=== PATIENT | female | born 1955 | race Caucasian/White ===

== ENCOUNTER → 2020-04-11 08:25 | Outpatient (BNVA) | payer OTHER, SELFPAY | PROVIDERS: Family Provider Obstetrics & Gynecology; PCP Obstetrics & Gynecology; Visit Provider Registered Nurse | DX: E03.9 Hypothyroidism, unspecified (principal); E78.5 Hyperlipidemia, unspecified | CPT/HCPCS: 80061; 84443 ==

== ENCOUNTER → 2020-04-21 15:44 | Outpatient (BNVA) | payer OTHER, SELFPAY | PROVIDERS: Family Provider Obstetrics & Gynecology; PCP Obstetrics & Gynecology; Visit Provider Registered Nurse | DX: R30.9 Painful micturition, unspecified (principal); R39.9 Unspecified symptoms and signs involving the genitourinary system; H15.009 Unspecified scleritis, unspecified eye | CPT/HCPCS: 81000; 87086 ==

== ENCOUNTER → 2020-06-17 11:30 | Outpatient (BNVA) | payer OTHER, SELFPAY | PROVIDERS: Family Provider Obstetrics & Gynecology; PCP Obstetrics & Gynecology; Visit Provider Registered Nurse | DX: M19.90 Unspecified osteoarthritis, unspecified site (principal) | CPT/HCPCS: 85651; 86038; 86140; 86431 ==

== ENCOUNTER → 2021-04-28 11:03 | Outpatient (BNVA) | payer OTHER, SELFPAY | PROVIDERS: Family Provider Obstetrics & Gynecology; PCP Registered Nurse; Visit Provider Registered Nurse | DX: E03.9 Hypothyroidism, unspecified (principal); H15.009 Unspecified scleritis, unspecified eye; B02.9 Zoster without complications | CPT/HCPCS: 84443 ==

== ENCOUNTER 2021-09-01 08:43 | Outpatient (CLI) | payer OTHER, SELFPAY ==
[2021-09-01 09:22] VITALS: BMI 21.9
--- NOTE | 2021-09-01 09:24 | NMCV_ITS ---
NM susie perf SPECT r/s* [id number] Darshana Chandler Age: 66 Gender: F : 1955 Exam Date: 09/01/2021 09:24 Ordering Phys: Chantel Worthington MD ([email or web address]) Technologist: TAISHA Rosen Exam Location: [facility] Indications: Chest pain STRESS TEST Please see separate stress test report in [facility] for full findings IMAGE PROTOCOL Rest/Stress 1 Exercise Day Radiopharmaceutical Dose (mCi) Administration Site Administered by Rest: Tc-99m 10.9 IV TAISHA Rosen Sestamibi Stress:Tc-99m 32.4 IV TAISHA Rosen Sestamitonya Rest: 01-Sep-2021 60 Discovery 630 Stress: 01-Sep-2021 45 Discovery 630 Radiopharmaceutical was injected at 91% maximum heart rate. Images obtained in supine and prone position. SPECT RESULTS Technical Quality: Excellent Raw Data Analysis: Normal Image Corrections: No attenuation or motion correction applied Summed Stress Score: 0 Summed Rest Score: 5 Summed Difference Score: 0 PERFUSION FINDINGS Fairly uniform myocardial tracer uptake. Attenuation artifacts are noted in the inferior wall region, with the rest imaging FUNCTIONAL RESULTS (calculated via Gated SPECT) Stress Image LV EF (%): 68 Stress EDV (mL):71 TID: 0.84 Stress ESV (mL):23 FUNCTIONAL FINDINGS: Segmental wall motion analysis revealing no gross wall motion normalities. IMPRESSIONS 1. Unremarkable Myocardial perfusion imaging 2. Normal LV ejection fraction of 60%. 3. LV wall motion analysis revealing no gross wall motion abnormalities. 4. Normal LV volume 5. Low probability for coronary ischemia, based on the above findings 6. No similar previous studies are available for comparison Dr Chantel Worthington MD [facility] (Electronically Signed) Final Date: 02 September 2021 07:28 S
--- NOTE | 2021-09-01 09:24 | ECG_ITS ---
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 Interpretive Statements NAME OF STUDY: EXERCISE SESTAMIBI STRESS TEST INDICATION: Chest Pain, PROCEDURE: The baseline electrocardiogram showed normal sinus rhythm with normal ST-Ts poor R wave progression. At the baseline, the patient's blood pressure was 135/96 mm Hg with a heart rate of 74. The patient exercised for 4 minutes and 35 seconds on a standard Suhas protocol. Patient attained a maximum heart rate of 148 beats per minute(94% of the maximum predicted heart rate) with a blood pressure at the peak exercise of 180/75 mm Hg. The EKG at the peak exercise revealed no significant changes because of the heavy artifact, the peak exercise EKG is difficult to interpret. Patient did not have any chest pain or any significant arrhythmis with the exercise Sestamibi was injected 1 minute prior to the peak exercise During the recovery phase, there were no new changes. Blood pressure at the end of the recovery phase was 128/74 mm Hg with a heart rate of 81 per minute. CONCLUSION: 1. No significant EKG changes with the treadmill exercise 2. No exercise-induced chest pain or cardiac arrhythmia 3. Impaired exercise tolerance, attained a maximum of 7.0 METs 4. Sestamibi/Sestamibi perfusion results pending; see separate report. Electronically Signed On 09-04-2021 7:00:02 CDT by Chantel Worthington M.D. [id number]
[2021-09-01 11:55] VITALS: BP 128/74; PULSE 80
== END 2021-09-01 08:44 | disposition home or self-care (01) ==
PROVIDERS: PCP Registered Nurse; Visit Provider Internal Medicine Cardiovascular Disease
DX: R07.9 Chest pain, unspecified (principal)
CPT/HCPCS: 78452; 93017; A9500

== ENCOUNTER 2021-09-08 05:50 | Outpatient (CLI) | payer OTHER, SELFPAY ==
--- NOTE | 2021-09-08 06:15 | USCV_ITS ---
Darshana Chandler Age: 66 Gender: F : 1955 Exam Date: 09/08/2021 06:03 Ordering Phys: Chantel Worthington MD ([email or web address]) Technologist: Jennifer Grande [place] [facility] [place]: Shortness of breath, chest pain BP: 117 / 65 HR: 60 Rhythm: Sinus Technical Quality: Adequate MEASUREMENTS (Male / Female) Normal Values 2D ECHO LV Diastolic Diameter PLAX 3.0 cm 4.2 - 5.9 / 3.9 - 5.3 cm LV Systolic Diameter PLAX 2.2 cm IVS Diastolic Thickness 1.4 cm 0.6 - 1.0 / 0.6 - 0.9 cm IVS Systolic Thickness 1.3 cm LVPW Diastolic Thickness 1.3 cm 0.6 - 1.0 / 0.6 - 0.9 cm LVPW Systolic Thickness 1.5 cm LVOT Diameter 2.0 cm LV Ejection Fraction 2D Teich 54.9 % LV Ejection Fraction MOD 2C 44.5 % LV Ejection Fraction 2C AL 43.6 % LA Diameter 1.5 cm LA Width 2.4 cm LA Height 3.0 cm RA Width 3.5 cm RA Height 5.9 cm Aorta at Sinotubular Diameter 2.2 cm IVC Diameter 1.1 cm M-MODE Aortic Annulus Diameter 3.4 cm LA Ao Ratio MM 0.4 MV E Point Septal Separation 0.5 cm DOPPLER AV Peak Velocity 80.0 cm/s LVOT Peak Velocity 69.0 cm/s AV Area Cont Eq vti 2.5 cm squared AV Area Cont Eq pk 2.8 cm squared MV Area PHT 4.5 cm squared Mitral E to A Ratio 0.9 MV E' Velocity 32.5 cm/s Mitral E to MV E' Ratio 6.0 Mitral E to LV E' Lateral Ratio 4.8 Mitral E to LV E' Septal Ratio 8.0 TV Peak E Velocity 32.0 cm/s Right Atrial Pressure 8.0 mmHg PV Peak Velocity 62.0 cm/s RV Acceleration Time 0.2 s RV Ejection Time 0.3 s RV AcT/ET 0.5 FINDINGS Left Ventricle Diffuse hypokinesia of the left ventricle with an ejection fraction of 44%. Right Ventricle The right ventricle is normal in size and function. Right Atrium The right atrium is normal in size. Left Atrium The left atrium is normal in size. Mitral Valve Thickened mitral valve. Trace mitral valve regurgitation. Aortic Valve No gross abnormalities noted Tricuspid Valve No gross abnormalities noted Pulmonic Valve No gross abnormalities noted Pericardium Normal pericardium without effusion. Aorta Normal ascending aorta dimension. IVC Normal IVC dimension with >50% respiratory change of the inferior vena cava. CONCLUSIONS Diffuse hypokinesia of the left ventricle with an ejection fraction of 44%. Thickened mitral valve. Trace mitral valve regurgitation. There are no intracardiac masses. There is no pericardial effusion. Possibly normal chamber sizes The PA pressure could not be calculated. No similar previous studies are available for comparison Dr Chantel Worthington MD [facility] (Electronically Signed) Final Date: 08 September 2021 07:10 S
== END 2021-09-08 05:51 | disposition home or self-care (01) ==
LOC: RAD 05:51
PROVIDERS: PCP Registered Nurse; Visit Provider Internal Medicine Cardiovascular Disease
DX: I34.0 Nonrheumatic mitral (valve) insufficiency (principal)
CPT/HCPCS: 93306

== ENCOUNTER → 2021-09-23 12:13 | Outpatient (BNVA) | payer OTHER, SELFPAY | PROVIDERS: PCP Registered Nurse; Visit Provider Internal Medicine Cardiovascular Disease | DX: I10 Essential (primary) hypertension (principal); E78.5 Hyperlipidemia, unspecified; I42.9 Cardiomyopathy, unspecified | CPT/HCPCS: 36415; 80048; 80061; 80076; 85025; 85610; 86850; 86900 ==

== ENCOUNTER 2021-10-13 09:10 | Outpatient (CLI) | payer OTHER, SELFPAY ==
[2021-10-13 10:48] LABS: Alanine Aminotransferase 11 U/L (0-33); Albumin Level 4.5 g/dL (3.5-5.2); Alkaline Phosphatase 81 IU/L (35-105); Aspartate Amino Transferase 18 U/L (0-32); Cholesterol 247 mg/dL (0-200); Globulin 2.3 g/dL (1.3-4.6); HDL Cholesterol 65 mg/dL (60-100); LDL Cholesterol Calculated 160 mg/dL (50-129); LDL HDL Ratio 2.46 RATIO (0.00-3.22); Total Bilirubin 0.3 mg/dL (0.15-1.2); Total Protein 6.8 g/dL (6.6-8.7); Triglycerides 112 mg/dL (0-150)
== END 2021-10-13 09:11 | disposition home or self-care (01) ==
PROVIDERS: PCP Registered Nurse; Visit Provider Internal Medicine Cardiovascular Disease
DX: E78.5 Hyperlipidemia, unspecified (principal)
CPT/HCPCS: 80061; 80076

== ENCOUNTER 2021-10-15 07:01 | Outpatient (CLI) | payer OTHER, SELFPAY ==
[2021-10-15] VITALS (12 sets, daily range): BP systolic 123–150; BP diastolic 70–90; PULSE 58–64; RESP 13–21; TEMP 36.8; O2SAT 94–98; BMI 22.2
--- NOTE | 2021-10-15 07:00 | XACV_ITS ---
Ht: 170 cm Wt: 64 kg BSA: 1.75 m2 Gender: Female : 1955 Any Known Allergies: Other Exam Priority: Routine Indication(s): - Cardiomyopathy Procedure(s): Procedure Description: Diagnostic procedure Procedure Description: Left Heart Catheterization Procedure Description: Coronary Angiography Ander WALLER; Diagnostic Cath Status: Elective Diagnostic Findings * The left main is a medium caliber vessel with no significant stenotic lesions. * The left anterior descending artery is a medium caliber vessel with mild diffuse ectasia in the proximal to mid segment. Minimal intimal irregularities were noted in this region. No significant obstructive lesions. * The left circumflex artery is a small to medium caliber nondominant vessel with no significant stenotic lesions. * The right coronary artery is a medium to large caliber dominant vessel with no significant stenotic lesions. Conclusions 1. This 66-year-old white female, present with complaints of chest pain and shortness of breath. She had a Myocardial perfusion imaging which was unremarkable. Echocardiogram revealed an LV ejection fraction of 44%. In view of the patient's ongoing symptoms and the LV dysfunction by echocardiogram, in order to further evaluate the coronary status, a cardiac catheterization was recommended. Patient underwent left heart catheterization with left and right coronary angiogram today. The findings are as follows. 2. Right dominant coronary circulation. No significant stenotic lesions in the left main, left anterior descending artery and the circumflex arteries. LVEDP 22 mmHg.. Diagnostic RX Recommendation: medical therapy and/or counseling Pressures Phase:Rest AO : 100 / 98 ( 80 ) @ 9:52:00 AM 115 / 62 ( 87 ) @ 9:55:00 AM 115 / 62 ( 87 ) @ 9:55:00 AM LV : 114 @ 9:55:00 AM 113 @ 9:55:00 AM Valves Phase:DefaultPhase AV : 0.0 @ 9:08:53 AM AV Mean Gradient: 0.0 @ 9:08:53 AM Clinical Evaluation EBL: 5mL-10mL Procedural Details Pre-Procedure Time Out. Identified patient by full name and date of as verbalized by the patient/guarantor. Does the consent match the physician's order: Yes. Accurate & Complete Informed Consent: Yes. Inpatient/Outpatient History & Physical on Chart: Yes. If H&P is completed, is and addenduem needed: No; If yes, is the addendum complete: N/A. Visualize and Verify Site with Patient/Guarantor: N/A. Relevant Radiology Images available: N/A. Pre-op teaching completed and patient verbalized understanding. The risks, benefits, and alternatives of sedation and/or procedure were discussed by physician. The patient agrees to continue. Procedure started. [facility] Clinical Fraility Score: 3: Managing Well. 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 Chest Pain Symptom Assessment: Atypical Angina. Cardiovascular Instability: No, stable. Correct patient, site and procedure confirmed by cath team. Current diagnosis: Cardiomyopathy. PERRLA. Strong, equal hand quill cleaner bilaterally. Lungs clear x 5 lobes. IV Site on Arrival: 20 gauge in the left forearm. IV Fluids: 0.9% NaCl at KVO. 0 mL infused prior to engineering lab technician. Pre Procedural Pulses: bilateral dorsalis pedis was 3+. Pre Procedural Pulses: bilateral posterior tibial was 3+. Pre Procedural Pulses: bilateral radial was 3+. Oxygen started at 3liters/min via nasal canula. right groin was prepped with chloroprep then draped in the usual sterile fashion. right radial was prepped with chloroprep then draped in the usual sterile fashion. Physician notified. Baseline sample Acquired. HR: 66 BPM. Baseline sample Acquired. HR: 65 BPM. Admit Source: Out Patient. Current Diagnosis : Chest Pain. Family updated by MD prior to the start of the procedure. Equipment: 5F - Femoral. Equipment: 5F - Radial. Equipment: 6F - Femoral. Equipment: 6F - Radial. Physician arrived. Physician scrubbed in. Immediate Pre-Procedure Time Out. Correct Patient: Yes; Correct Procedure: Yes; Correct Site: Yes; Correct Patient Position: Yes; Correct Supplies: Yes; Dried Flammable Prep: Yes; Blood Products Available: N/A;. Lidocaine 1% infiltrated to the right radial. Heparinized Saline (2 units/mL), 1000 mL bag. Cardiac Cath Pack. [employer] Manifold Kit Model BT 2000. Arterial access obtained. A 5 lao Arsenio catheter in over wire. Multiple views taken of left coronary artery. Catheter dropped into lv over the wire. EDP Sample taken: LV 114/11,22; HR: 67 BPM; SpO2: 94%. Pullback taken: LV 113/10,21; AO 115/62(87); Mean: 0mmHg, Peak to Peak: 0mmHg, SEP: 16sec/min; HR: 66 BPM; SpO2: 94%. Catheter out over the wire. A CRD 5F JR4 Diagnostic Catheter was advanced over the wire and used for Right coronary angiography. Multiple views taken of right coronary artery. Catheter removed over the wire. Physician scrubbed out. Physician review of films. A TR Band was successful obtaining hemostatsis at the Right Radial artery insertion site. TR band placed. Hemostasis obtained. Post Procedure: Pulses reassessed and unchanged. PERRLA. Strong, equal hand quill cleaner bilaterally. No VTE prophylaxis required. Medication waste: Lido- 1 ml Nitro- 49.8 mg Heparin- 1000 units. Versed- 1 mg Fentanyl- 50 mcg. Total IV fluids: 250 mL. Fluoro: 4:08. Contrast type used: Omnipaque 300 mg/mL, 150 mL bottle. [id number]. Post-op diagnosis: Cardiomyopathy, Normal Coronaries. Complications: None. Estimated blood loss: 5mL-10mL. Responsiveness - Normal response to verbal stimuli; alert and oriented, PERRLA. Airway - Unaffected, no intervention required; spontaneous ventilation. Circulation: W/N/L, pulses unchanged. Nausea/Vomiting: No. Procedure completed. Patient transferred by bed to CPRU. Vital chart was stopped. Access Site Site: Right Radial artery Sheath Size: 6 Fr Hemostasis Method: TR Band Hemostasis Success: Successful Procedure Medications Start: 8:34 AM Stop: 8:34 AM Medication: Solu-Medrol (methylprednisolone) Amount: 60 mg Route: I.V. Start: 8:37 AM Stop: 8:37 AM Medication: Fentanyl Amount: 50 mcg Route: I.V. Start: 8:38 AM Stop: 8:38 AM Medication: Versed Amount: 1 mg Route: I.V. Start: 8:46 AM Stop: 8:46 AM Medication: 0.9% Saline Amount: 250 ml Route: I.V. bolus Start: 8:47 AM Stop: 8:47 AM Medication: Nitrogylcerin Amount: 200 mcg Route: I.A. Start: 8:47 AM Stop: 8:47 AM Medication: Verapamil Amount: 5 mg Route: I.A. Start: 8:56 AM Stop: 8:56 AM Medication: Heparin Amount: 5000 units Route: I.V. I, the attending physician, have reviewed and verified all procedure medications. Yes, all medications given per verbal order History/Risk Factors Hypertension: Yes Dyslipidemia: No Peripheral Arterial Disease (PAD): No Myocardial Infarction (OH): No Obesity: No Renal Disease: No Tobacco Use: Never Prior Interventions PCI: No CABG: No Valve Surgery: No Report Signatures Finalized by Dr Chantel Worthington MD [facility] on 10/15/2021 09:14 PM
[2021-10-15 07:27] LABS: Basophils % 0.1 %; Hematocrit 40.6 % (37.0-47.0); Hemoglobin 13.1 g/dL (11.5-15.3); Lymphocytes # 1.2 10^3/uL (0.8-4.8); Lymphocytes % 16.5 %; Mean Corpuscular HGB Conc 32.3 g/dL (30.0-36.0); Mean Corpuscular Hemoglobin 30.8 pg (28.0-34.0); Mean Corpuscular Volume 95.5 fl (81-99); Mean Platelet Volume 12.2 fL (7.4-10.4); Monocytes # 0.3 10^3/uL (0.2-0.9); Monocytes % 3.5 %; Neutrophils # 5.85 10^3/uL (1.8-7.7); Neutrophils % 79.6 %; Nucleated Red Blood Cells % 0 %; Platelet Count 199 10^3/cmm (130-400); Red Blood Count 4.25 10^6/uL (4.1-5.3); Red Cell Distribution Width 13.9 % (12.1-15.1); White Blood Count 7.4 10^3/uL (4.0-10.0)
[2021-10-15 07:37] LABS: INR 1.03 (0.8-1.2)
[2021-10-15 07:42] LABS: Anion Gap 16.9 (5-19); Blood Urea Nitrogen 18 mg/dL (8-23); Calcium 9.6 mg/dL (8.5-10.5); Carbon Dioxide 23 mmol/L (22-29); Chloride 105 mmol/L (98-107); Glomerular Filtration Rate 100.6 mL/min (90-130); Glucose 126 mg/dL (65-115); Osmolality Calculated 295 mOsm/kg (285-295); Potassium 3.9 mmol/L (3.5-5.1); Sodium 141 mmol/L (136-145)
[2021-10-15] MEDS: diphenhydrAMINE 50 mg Capsule PO (08:07)
--- NOTE | 2021-10-15 09:25 | PC.NURSE ---
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 tr band present on right wrist with distal pulses present. no bruising or hematoma noted. pt complains of no pain. nurse educated pt and spouse at bedside of restrictions of right wrist. both stated understanding. pt placed on vitals machine and will be monitored per protocol. call light placed on bedside table within reach with instructions to call if nurse was needed for anything.
== END 2021-10-15 12:25 | disposition home or self-care (01) ==
PROVIDERS: PCP Registered Nurse; Visit Provider Internal Medicine Cardiovascular Disease
DX: R07.9 Chest pain, unspecified (principal); R06.02 Shortness of breath; I10 Essential (primary) hypertension; Z79.82 Long term (current) use of aspirin; E03.9 Hypothyroidism, unspecified; E78.5 Hyperlipidemia, unspecified; Z88.8 Allergy status to other drugs, medicaments and biological substances; I42.9 Cardiomyopathy, unspecified
CPT/HCPCS: 36415; 80048; 85025; 85610; 93452; 93458; 96360; 96361; 99152; 99153; C1769; C1887; C1894; J1644; J2250; J2930; J3010; J3490; J7030; Q0163; Q9967

== ENCOUNTER → 2021-10-22 10:13 | Outpatient (BNVA) | payer OTHER, SELFPAY | PROVIDERS: PCP Registered Nurse; Visit Provider Nurse Practitioner Family | DX: I10 Essential (primary) hypertension (principal); I42.9 Cardiomyopathy, unspecified | CPT/HCPCS: 36415; 80048 ==

== ENCOUNTER 2022-05-01 09:34 | Outpatient (CLI) | payer OTHER, MEDICARE, SELFPAY ==
--- NOTE | 2022-05-01 09:43 | XRR_ITS ---
PROCEDURE INFORMATION: Exam: XR Lumbosacral Spine Exam date and time: 05/01/2022 9:44 AM Age: 67 years old Clinical indication: Pain; Sciatica; Left; Additional info: M54.31 - sciatica, right side TECHNIQUE: Imaging protocol: Radiologic exam of the lumbosacral spine. Views: 2 or 3 views. COMPARISON: CR XR lumbar spine 2-3V* [id number] 01/21/2016 3:07 PM FINDINGS: Bones/joints: Lumbar curvature and alignment is unremarkable. There are moderate degenerative changes L5-S1 with disc space narrowing, endplate sclerosis, osteophytic lipping and facet arthrosis. Remaining disc heights maintained. Osseous structures otherwise unremarkable. There is no fracture or spondylolisthesis. Pedicles are intact. Soft tissues: Paraspinal soft tissues are unremarkable. XR/XR lumbar spine 2-3V* [id number] IMPRESSION: Moderate degenerative changes L5-S1. No acute bony abnormalities
== END 2022-05-01 09:35 | disposition home or self-care (01) ==
PROVIDERS: PCP Registered Nurse; Visit Provider Registered Nurse
DX: M54.31 Sciatica, right side (principal)
CPT/HCPCS: 72100

== ENCOUNTER → 2022-05-19 10:22 | Outpatient (BNVA) | payer MEDICARE, SELFPAY | PROVIDERS: PCP Registered Nurse; Visit Provider Anesthesiology Pain Medicine | DX: M47.816 Spondylosis without myelopathy or radiculopathy, lumbar region (principal); M51.16 Intervertebral disc disorders with radiculopathy, lumbar region | CPT/HCPCS: 99204 ==

== ENCOUNTER → 2022-06-10 09:15 | Outpatient (BNVA) | payer MEDICARE, SELFPAY | PROVIDERS: PCP Registered Nurse; Visit Provider Registered Nurse | DX: E03.9 Hypothyroidism, unspecified (principal) | CPT/HCPCS: 80053; 84443 ==

== ENCOUNTER 2022-06-11 06:55 | Outpatient (CLI) | payer MEDICARE, SELFPAY ==
--- NOTE | 2022-06-11 07:15 | MR_ITS ---
WS: [id number] MRI LUMBAR SPINE NONCONTRAST TECHNIQUE: Sagittal T1, T2 and STIR imaging. Axial T1 and T2 imaging. CLINICAL INFORMATION: M47.816 - Spondylosis without myelopathy or radiculopathy... COMPARISON: None. FINDINGS: Mild lumbar curve. No acute compression. No high-grade central canal stenosis. Incidental Tarlov cyst in the sacrum. L1-L2: Mild annular bulging. Slight narrowing of the RIGHT subarticular recess. Mild LEFT foraminal n arrowing. Mild facet arthropathy. L2-L3: No significant disc bulging. Spinal canal and foramen are patent. L3-L4: Mild annular bulging. Mild facet arthropathy. Spinal canal and foramen are patent. L4-L5: Mild annular bulging with a small annular fissure. Slight impingement traversing L5 nerve root s bilaterally. Mild facet arthropathy. Foramen are patent. L5-S1: Mild disc space narrowing. Mild disc osteophytic ridging. Spinal canal and foramen are patent. Mild facet arthropathy. Visualized pelvic bony structures: Normal. Paravertebral soft tissues: Normal. Retroverted and retroflexed uterus. MR/MR lumbar spine wo con* [id number] IMPRESSION: 1. Mild lumbar curve. No acute compression. No high-grade central canal stenos is. 2. Mild annular bulging L4-L5 with slight impingement traversing L5 nerve root s bilaterally. Small annular fissure. 3. Tiny RIGHT subarticular protrusion L1-L2 with slight narrowing of the RIGHT subarticular recess. 4. Moderate facet arthropathy L4-L5. 5. Incidental Tarlov cyst in the sacrum measuring 2.3 x 1.5 cm. 6. Retroverted and retroflexed uterus.
== END 2022-06-11 06:56 | disposition home or self-care (01) ==
LOC: RAD 06:57
PROVIDERS: PCP Registered Nurse; Visit Provider Anesthesiology Pain Medicine
DX: M47.816 Spondylosis without myelopathy or radiculopathy, lumbar region (principal); N85.4 Malposition of uterus; G96.191 Perineural cyst; M51.26 Other intervertebral disc displacement, lumbar region
CPT/HCPCS: 72148; 99204

== ENCOUNTER → 2022-06-14 13:45 | Outpatient (BNVA) | payer MEDICARE, SELFPAY | PROVIDERS: PCP Registered Nurse; Visit Provider Anesthesiology Pain Medicine | DX: M54.16 Radiculopathy, lumbar region (principal) | CPT/HCPCS: 64483; 64484; J1100; J1200; J3490 ==

== ENCOUNTER → 2022-06-28 13:33 | Outpatient (BNVA) | payer MEDICARE, SELFPAY | PROVIDERS: PCP Registered Nurse; Visit Provider Anesthesiology Pain Medicine | DX: M54.16 Radiculopathy, lumbar region (principal) | CPT/HCPCS: 64483; 64484; J1100; J3490 ==

== ENCOUNTER → 2022-07-14 11:02 | Outpatient (BNVA) | payer MEDICARE, SELFPAY | PROVIDERS: PCP Registered Nurse; Visit Provider Anesthesiology Pain Medicine | DX: M47.816 Spondylosis without myelopathy or radiculopathy, lumbar region (principal); M51.16 Intervertebral disc disorders with radiculopathy, lumbar region | CPT/HCPCS: 99214 ==

== ENCOUNTER → 2022-10-27 09:58 | Outpatient (BNVA) | payer MEDICARE, SELFPAY | PROVIDERS: PCP Registered Nurse; Visit Provider Registered Nurse | DX: N39.0 Urinary tract infection, site not specified (principal) | CPT/HCPCS: 81000 ==

== ENCOUNTER → 2023-04-25 11:34 | Outpatient (BNVA) | payer MEDICARE, SELFPAY | PROVIDERS: PCP Registered Nurse; Visit Provider Registered Nurse | DX: N39.0 Urinary tract infection, site not specified (principal); R39.9 Unspecified symptoms and signs involving the genitourinary system | CPT/HCPCS: 81000; 87086 ==

== ENCOUNTER → 2023-06-01 08:52 | Outpatient (BNVA) | payer MEDICARE, SELFPAY | PROVIDERS: PCP Registered Nurse; Visit Provider Registered Nurse | DX: E78.5 Hyperlipidemia, unspecified (principal); E03.9 Hypothyroidism, unspecified | CPT/HCPCS: 84443 ==

== ENCOUNTER → 2023-08-22 09:00 | Day surgery (SDC) | payer MEDICARE, SELFPAY | LOC: OPS 10-20 12:25 | PROVIDERS: PCP Registered Nurse; Visit Provider Obstetrics & Gynecology | DX: Z01.818 Encounter for other preprocedural examination (principal) | CPT/HCPCS: 93005 ==

== ENCOUNTER 2023-08-30 10:26 | Observation (INO) | payer MEDICARE, SELFPAY ==
--- NOTE | 2023-08-22 09:40 | ECG_ITS ---
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 Measurements Intervals Burt Rate: 64 P: 72 MD: 213 QRS: 44 QRSD: 87 T: 81 QT: 384 QTc: 397 Interpretive Statements SINUS RHYTHM WITH FIRST DEGREE AV BLOCK LOW QRS VOLTAGE IN PRECORDIAL LEADS [QRS DEFLECTION < 1.0 mV IN CHEST LEADS] No previous ECG available for comparison Electronically Signed On 08-22-2023 14:34:45 CDT by Duglas Jordan M.D. [id number]
--- NOTE | 2023-08-22 09:51 | ANES.PREANE2 ---
Pre-Anesthetic Assessment Height/Weight: Height 1.7 m Operation Date: 08/30/23 12:40 Proposed Procedures p Total Vaginal Hysterectomy 21780, 72650, 43204, 90804, N81.2, N81.10, N81.6(Not Applicable) - Peter Jackson MD s Anterior Repair Anterior Colporrhaphy(Not Applicable) - MD roxie Romero Posterior Repair Posterior Colporrhaphy(Not Applicable) - Peter Jackson MD s Sling(Not Applicable) - Peter Jackson MD s Sacrospinous Ligament Suspension Sacrospinous Fixation(Not Applicable) - Peter Jackson MD Familial anesthetic complications: none Social No alcohol and No tobacco Exam alert, oriented x 3, clear to auscultation bilaterally and regular rate & rhythm Airway Mallampati: Class II Dentition: other (bridges) Metabolic Thyroid Disease Anesthetic Plan ASA status: 2 Anesthesia: General Risk of > 500 ml blood loss (7ml/kg in children): No Medications/Allergies Home Medications Medication Instructions Recorded Confirmed Last Taken Type nitroglycerin 0.4 mg sublingual 0.4 mg sublingual Q5M PRN chest 06/24/21 08/22/23 10/13/21 Rx tablet pain 30 days #30 tabs aspirin 325 mg tablet 325 mg PO DAILY 10/14/21 08/22/23 08/15/23 History prednisolone acetate 1 % eye 1 drp ophthalmic (eye) DAILY 30 04/18/23 08/22/23 08/22/23 Rx drops,suspension days #5 mL levothyroxine 50 mcg capsule 50 mcg PO DAILY #90 caps 06/07/23 08/22/23 08/22/23 Rx acetaminophen 300 mg-codeine 30 mg 1 tab PO Q6H 5 days #20 tabs 07/11/23 08/22/23 08/19/23 Rx tablet Allergies Allergy/AdvReac Type Severity Reaction Status Date / Time iodine Allergy Severe ALGY-Anaphy Verified 08/22/23 07:49 laxis Chjufny-HAT-IzM Reductase AdvReac Severe Myalgia Verified 08/22/23 07:49 Inhibitor PFSH Anesthesia Medical History Hypothyroid Scleritis Family History Mother Heart disease CAD (coronary artery disease) Dementia Diabetes Father Heart disease CAD (coronary artery disease) Family/Other CAD (coronary artery disease) Cancer Denies family history of Clotting disorder Chronic kidney disease (CKD) Suicide Anesthesia complication Bleeding disorder Lung disease Stroke Social History Smoking and tobacco/nicotine status: never used tobacco/nicotine Alcohol intake: never Substance/Drug Use: never Adopted: No Caregiver/support person: No Lives independently: No Household members: spouse Housing: House Marital status: service: No Current occupational status: retired Sexually active: Yes Do you think of yourself as: Straight/Heterosexual Current gender identity: Female Agree to transfusion: Yes Data Anesthesia Cardiac Studies: Echocardiogram 09/08/21 Sestamibi Stress Test (Cardiology) 09/01/21
[2023-08-30] VITALS (18 sets, daily range): BP systolic 94–135; BP diastolic 62–83; PULSE 54–79; RESP 15–20; TEMP 36.3–36.9; O2SAT 91–99; BMI 22.5
[2023-08-30] MEDS: sodium chloride 0.9% 1,000 ML 30 ML IV (06:39)
[2023-08-30] MEDS: scopolamine 1.5 Patch 1 PATCH TRANSDERMA (06:39)
[2023-08-30] MEDS: enoxaparin 30 mg/0.3 mL Syringe SUBCUT (06:39)
[2023-08-30] MEDS: ceFOXitin 2,000 MG in sodium chloride 0.9% (plus) 50 ML 100 MG IV (06:39)
--- NOTE | 2023-08-30 06:43 | W.PM.OPSUD ---
Surgery/Procedure H&P Update DATE OF PROCEDURE: August 30, 2023 DATE H&P PERFORMED: 08/22/23 H&P UPDATE INFORMATION: I have reviewed H&P completed within last 30 days, I have examined patient prior to procedure and No changes to prior documentation PREOP DIAGNOSIS: Uterine prolapse, cystocele, rectocele PLANNED PROCEDURE: Operation Date: 08/30/23 07:00 Proposed Procedures p Total Vaginal Hysterectomy 01531, 00378, 54844, 32631, N81.2, N81.10, N81.6(Not Applicable) - Peter Jackson MD s Anterior Repair Anterior Colporrhaphy(Not Applicable) - Peter Jackson MD s Posterior Repair Posterior Colporrhaphy(Not Applicable) - Peter Jackson MD s Sling(Not Applicable) - Peter Jackson MD s Sacrospinous Ligament Suspension Sacrospinous Fixation(Not Applicable) - Peter Jackson MD
[2023-08-30 07:04] LABS: Basophils # 0.1 10^3/uL (0.0-0.1); Basophils % 1.4 %; Eosinophils # 0.1 10^3/uL (0.0-0.8); Eosinophils % 3.3 %; Hematocrit 41.3 % (36-47); Lymphocytes # 1.7 10^3/uL (0.8-4.8); Lymphocytes % 40.6 %; Mean Corpuscular HGB Conc 32.7 g/dL (30-55); Mean Corpuscular Hemoglobin 30.7 pg (27-33); Mean Corpuscular Volume 93.9 fl (85-98); Mean Platelet Volume 12.1 fL (7.4-10.4); Monocytes # 0.4 10^3/uL (0.2-0.9); Neutrophils # 1.93 10^3/uL (1.8-7.7); Neutrophils % 45.5 %; Nucleated Red Blood Cells % 0 %; Platelet Count 178 10^3/cmm (157-399); Red Cell Distribution Width 13.9 % (12.1-15.1); White Blood Count 4.24 10^3/uL (3.29-11.43)
[2023-08-30 07:16] LABS: Alanine Aminotransferase 10 U/L (0-33); Albumin Level 4.3 g/dL (3.5-5.2); Alkaline Phosphatase 98 U/L (35-105); Anion Gap 14.1 (5-19); Aspartate Amino Transferase 13 U/L (0-32); Blood Urea Nitrogen 17 mg/dL (8-23); Carbon Dioxide 26 mmol/L (22-29); Chloride 105 mmol/L (98-107); Creatinine Clr Calc Pharmacy 68.8917; Globulin 2.8 g/dL (1.3-4.6); Glucose 86 mg/dL (65-115); Osmolality Calculated 293 mOsm/kg (285-295); Potassium 4.1 mmol/L (3.5-5.1); Sodium 141 mmol/L (136-145); Total Bilirubin 0.3 mg/dL (0.15-1.2); Total Protein 7.1 g/dL (6.6-8.7)
[2023-08-30 07:19] LABS: Blood Urine 2+ (Negative); Glucose Urine UA Norm (Normal); Ketones Urine 1+ (Negative); Nitrate Urine Negative (Negative); Protein Urine Neg (Negative); Specific Gravity, Urine 1.015 (1.005-1.030); Urine Appearance Slightly Cloudy (CLEAR); Urine Color Yellow (Yellow); pH Urine 5 (5-7)
[2023-08-30 07:20] LABS: Add Urine Culture? Yes; Add Urine Microscopic? YES; Bacteria Urine TRACE /hpf; Bilirubin Urine Neg (Negative); Leukocyte Esterase Urine 2+ (Negative); Mucus Urine 1+ /hpf; RBC Urine 0-4 /hpf (0-2); Squamous Epithelial Cell Urine 0-4 /hpf (0-5); Transitional Epi Cells Urine 0-4 /hpf; Urobilinogen Urine Neg (Negative); WBC Urine 15-25 /hpf (0-5)
[2023-08-30] MEDS: lidocaine-epi 2% PF 1:200,000 20 mL SDV INJECTION (07:51)
--- NOTE | 2023-08-30 07:52 | P.ANESUD_ITS ---
Pre-Anesthetic Update Pre-Anesthetic Assessment: Date of Surgery/Procedure: 08/30/23 Preop Yasmin gnosis: Uterine prolapse, cystocele, rectocele Proposed Procedure: Operation Date: 08/30/23 07:00 Proposed Procedures p Total Vaginal Hysterectomy 31455, 91000, 64933, 49422, N81.2, N81.10, N81.6(Not Applicable) - Peter Jackson MD s Anterior Repair Anterior Colporrhaphy(Not Applicable) - Peter Jackson MD s Posterior Repair Posterior Colporrhaphy(Not Applicable) - Peter Jackson MD s Sling(Not Applicable) - Peter Jackson MD s Sacrospinous Ligament Suspension Sacrospinous Fixation(Not Applicable) - Peter Jackson MD Any changes to Pre-Anesthetic Assessment?: No Last Intake: Intake Last Liquid Date 08/29/23 Last Liquid Time 23:30 Last Solid Date 08/29/23 Last Solid Time 19:00 Labs Last 48hrs: Short CBC 08/30/23 Range/Units 06:33 WBC 4.24 (3.29-11.43) 10^ 3/uL Hgb 13.50 (11.27-16.99) g/ dL Hct 41.3 (36-47) % MCV 93.9 (85-98) fl Plt Count 178 (157-399) 10^3/c mm Neut % (Auto) 45.5 % Neut # (Auto) 1.93 (1.8-7.7) 10^3/u L BMP 08/30/23 06:33 Sodium 141 Potassium 4.1 Chloride 105 Carbon Dioxide 26 BUN 17 Creatinine 0.6 Glucose 86 Calcium 9.0 Liver Function 08/30/23 Range/Units 06:33 Total Bilirubin 0.3 (0.15-1.2) mg/dL AST 13 (0-32) U/L ALT 10 (0-33) U/L Alkaline Phosphata se 98 (35-105) U/L Albumin 4.3 (3.5-5.2) g/dL Urine 08/30/23 Range/Units 06:10 Urine Color Yellow (Yellow) Urine Appearance Slightly cloudy (CLEAR) Urine pH 5 (5-7) Ur Specific Gravit y 1.015 (1.005-1.030) Urine Protein Neg (Negative) Urine Glucose (UA) Norm (Normal) Urine Ketones 1+ H (Negative) Urine Nitrate Negative (Negative) Urine Bilirubin Neg (Negative) Ur Leukocyte Yanna ase 2+ H (Negative) Urine RBC 0-4 H (0-2) /hpf Urine WBC 15-25 H (0-5) /hpf Vitals: Temperature 97.7 F 08/30/23 06:14 Temperature Source Temporal Artery S can 08/30/23 06:14 Pulse Rate 67 08/30/23 06:14 Pulse Rhythm Regular 08/30/23 06:14 Respiratory Rate 18 08/30/23 06:14 Blood Pressure 135/83 08/30/23 06:14 Blood Pressure Dawna n 100 08/30/23 06:14 Pulse Oximetry 96 08/30/23 06:14 Oxygen Delivery Me thod Room Air 08/30/23 06:14 Exam: Pre-Anes Outpt Exam: alert, oriented x 3, clear to auscultation bilaterally and regular rate & rhythm Cardiac Studies: Echocardiogram 09/08/21 Sestamibi Stress Test (Cardiology) 09/01
[2023-08-30] MEDS: lidocaine-epi 2% PF 1:200,000 20 mL SDV XX (08:59)
--- NOTE | 2023-08-30 09:53 | P.OP_ITS ---
Operative Report Date of procedure: August 30, 2023 Pre-op diagnosis: Uterine prolapse Cystocele Rectocele Post-op diagnosis: same Procedure done: Total vaginal hysterectomy with bilateral salpingo-oophorectomy Anterior colporrhaphy augmented with allograft Mid urethral sling Posterior colporrhaphy Sacrospinous fixation Cystoscopy Specimens removed/disposition: Uterus Left and right fallopian tubes and ovaries Surgeon: Peter Jackson MD Estimated blood loss (mL): 20 IV fluids (mL): 1,200 Urine output (mL): 100 Complications: none Procedure: After informed consent and risks, benefits, indications and alternatives reviewed with the patient was taken to the operating room. The patient was placed in dorsal lithotomy position prepped, and draped in the usual sterile fashion. The pre-procedure timeout verifying the correct patient, procedure, site and side, could not requirements was performed and acknowledge by the OR team. A Phillips catheter was placed. A Bookwalter vaginal retractor was placed into the vagina in usual manner visualize the cervix. Cervix was grasped with a single tooth tenaculum and circumferentially infiltrated with 2% lidocaine with epinephrine. Then cervix was circumferentially incised with bovie and the bladder was dissected off the pubovesical cervical fascia anteriorly with a sponge stick and Metzenbaum scissors. The anterior peritoneal reflection was identified and the anterior cul-de-sac was entered sharply with Metzenbaum scissors. The same procedure was performed posteriorly and a posterior colpotomy was made through the posterior cul-de-sac space without difficulty and the posterior blade of the Bookwalter vaginal retractor was advanced posteriorly into the cul-de-sac. At this time, the left and right uterosacral ligaments were isolated and ligated with 0 Vicryl. The LigaSure device was placed over the uterosacral ligaments on either side and was then used in a serial fashion up through the cardinal ligaments bilaterally cross-clamped, cut, and sealed with the LigaSure device. Finally, the uterine arteries were cross-clamped, cut, sealed and ligated with the LigaSure device. Hemostasis was assured. The broad ligaments were then serially clamped, sealed and cut with the LigaSure device on both sides. Excellent hemostasis was visualized. Both cornua were clamped, sealed and cut with the LigaSure device. Then the pedicles were then suture ligated with excellent hemostasis. The uterus was excised and submitted for pathologic evaluation. No other abnormalities were noted in the pelvic cavity. Then the right side Infundibular ligament was identified. The ureter was confirmed along the pelvic side wall and peristalsis was noted. The LigaSure device was then used to clamp, sealed and transcepted at middistance, again being sure to be clear of the ureter and the fallopian tube and ovary were removed. The same process was then repeated on the left side. Good hemostasis was assure on both sides. The peritoneum was then closed in a pursestring fashion with 0 Vicryl suture. The vaginal cuff angles were closed with [id number] #0 Vicryl suture on both sides and transfixed with the ipsilateral cardinal and uterosacral ligaments. The remainder of the vaginal cuff was closed with #0 Vicryl in a running locked fashion. The anterior vaginal mucosa beneath the midurethra was infiltrated with 2% lidocaine with epinephrine. A vertical midline incision was made beneath the midurethra, nearly 1.5 cm length. Careful submucosal dissection was performed bilaterally up to the interior portion of the inferior pubic ramus. The insertion of adductor longus tendon on the patient?s pubic ramus was identified as reference land rell. Palpated the notch along the internal edge of ischiopubic ramus where the adductor longus tendon and the inferior pubic ramus meet. The Altis single incision sling (SIS) was selected. Then the needle of the SIS inserted aiming at the location of this notch. One of the integrated self- fixating tips place onto the needle by sliding it over the end of the needle. The needle/sling assembly was inserted toward the location of identified reference notch making sure that the flat of the handle is perpendicular to the desired path. The needle was tracked along the posterior surface of the ischiopubic ramus until the midline rell on the mesh is approximately at the midline position under the urethra. The needle was removed and the same was repeated on the contralateral side until the appropriate sling tension under the urethra was achieved ensuring that the mesh lays flat. The needle was removed and vaginal incision was closed in a running interlocking fashion with 2-0 Vicryl. The vaginal mucosa was then injected in the midline with normal saline. The vaginal mucosa was scored in the midline with the Bovie approximately 1 cm medial to the urethral meatus to 1 cm distal to the vaginal cuff. This vaginal mucosa was then undermined and then incised in the midline with the Metzenbaum scissors. The lateral aspects of the vaginal mucosa were then grasped with the Allis clamps and the vaginal mucosa was then dissected off the underlying fascia with the Metzenbaum scissors. Again, there was noted to be quite a bit of oozing at the incision, which was controlled with cautery. After adequate dissection was performed, bilaterally. The Coloplast dermis allograft was modified at time of application to fit spacea, 3 x 3 cm piece . The Coloplast allograft placed in front of cystocele ready to be implanted facing the vagina mucosa. Suture is placed at distal end of graft and placed towards vaginal cuff. Final suture is placed on proximal portion of the graft to complete the placement overlying the bladder. Then Interrupted vertical mattress sutures of 0 Vicryl were used to elevate the cystocele superiorly. The excessive vaginal mucosa was then trimmed with the Metzenbaum scissors and the vaginal mucosa was then reapproximated in the running interlocking fashion with 2-0 Vicryl. The posterior vaginal mucosa is opened in the routine fashion as described previously in Posterior Repair. A finger is inserted through the incision in the posterior vaginal mucosa, dissecting out the rectovaginal space (RVS). The right rectal pillar (RRP) is identified. The rectal pillar can be bluntly perforated either with the finger and with the tip of a long Tiny clamp. A thing malleable ribbon retractor is used for exposing the rectovaginal space in order to enter the pararectal space with retraction of the cardinal ligament, vagina, and rectum. Displacing the rectum to the left and the cardinal ligament and ureter anteriorly. A sponge dissector is used to bluntly dissect the sacrospinous ligament removing areolar tissue. The ischial spine was palpated directly, and a area approximately 2 cm medial to the spine was selected for insertion of the Anchorsure transvaginal sacrospinous fixation system. One end of the suture of Anchoresure system inserted through the sacrospinous ligament is placed through the muscular layer of the vagina. In a similar manner, the second suture is placed. The opposite end of the suture in the sacrospinous ligament is left free and held on a small hemostat. Then traction on this suture will draw the vaginal vault directly to the ligament, where a square knot affixes it to the sacrospinous ligament. After the emy stich is tied the second safety stich is tied. Then the colporrhaphy/vaginal repair is carried out in routine fashion. At this point, the rectum was from the posterior vaginal mucosa using sharp and blunt dissection, and the rectal bulge imbricated in the midline with interrupted sutures of 2-0 vicryl suture. Levator ani muscles on either side were approximated in the midline with interrupted 0 Vicryl sutures. Excess posterior vaginal mucosa was excised, and the vaginal episiotomy was repaired by approximating the posterior vaginal mucosa with a suture of Vicryl #0. At this time, instruments were removed from the vagina at hemostasis assured. Then the Phillips catheter was removed and cystoscope was inserted. The bladder was filled with sterile water. Complete evaluation of the bladder mucosa was performed noting no lacerations, dimpling, tears, bleeding of the mucosa or muscular layers. Both ureteral orifices were identified. Prompt excretion of urine from both ureteral orifices was noted. Cystoscope was withdrawn. Phillips catheter was then placed yielding clear flavio urine. A vaginal packing with Premarin cream was placed and the patient was taken out of dorsal lithotomy position and awakened from the general anesthesia. The patient tolerated the procedure well and was taken to the PACU recovery room in a stable condition. Sponge, lap, needle and instruments counts were correct x3.
--- NOTE | 2023-08-30 10:03 | P.BOP_ITS ---
Date of Procedure: 08/30/23 Surgeon: Peter Jackson MD Program Aide Group Work(s): Procedure(s) performed: Total vaginal hysterectomy with bilateral salpingo- oophorectomy, anterior colporrhaphy augmented with allograft, mid urethral sling, posterior colporrhaphy, sacrospinous fixation and cystoscopy Findings of the procedure(s): Uterine prolapse, cystocele, rectocele Estimated blood loss: 20 mL Specimen(s) removed: Uterus, left and right fallopian tube and ovaries Post-operative diagnosis: Uterine prolapse, cystocele stage III, rectocele stage II,
[2023-08-30] MEDS: HYDROmorphone 1 mg/mL INJ 1 mL 0.5 MG IVP (10:44)
[2023-08-30] MEDS: ketorolac 30 mg/mL INJ IVP ×2 (11:40→17:23)
[2023-08-30] MEDS: dextrose 5%-lactated ringers 1,000 ML 125 ML IV (11:41)
[2023-08-30] MEDS: HYDROcodone-acetaminophen 5-325 mg Tablet PO ×2 (11:47→21:15)
--- NOTE | 2023-08-30 14:10 | ANE.PACU2 ---
Inpatient post-anesthesia follow up: Airway intact: Yes Vital signs: Temperature 98.1 F Pulse Rate 77 Respiratory Rate 15 Blood Pressure 106/65 Pulse Oximetry 97 Oxygen Delivery Me thod Nasal Cannula Oxygen Flow Rate 2 Fraction of Inspir ed Oxygen Hydration adequate: Yes Nausea and vomiting: No Pain level: 3 Mental status: Baseline
[2023-08-30] MEDS: docusate sodium 100 mg Capsule PO (17:23)
[2023-08-31] MEDS: ketorolac 30 mg/mL INJ IVP ×2 (00:10→05:18)
[2023-08-31 04:00] VITALS: BP 108/60; PULSE 57; RESP 18; TEMP 37
[2023-08-31 05:47] LABS: Hematocrit 33.2 % (36-47); Mean Corpuscular HGB Conc 31.9 g/dL (30-55); Mean Corpuscular Hemoglobin 30.7 pg (27-33); Mean Corpuscular Volume 96.2 fl (85-98); Mean Platelet Volume 12.2 fL (7.4-10.4); Platelet Count 150 10^3/cmm (157-399); Red Blood Count 3.45 10^6/uL (3.85-5.65); Red Cell Distribution Width 13.8 % (12.1-15.1); White Blood Count 8.14 10^3/uL (3.29-11.43)
[2023-08-31] MEDS: levothyroxine 50 mcg Tablet PO (07:38)
[2023-08-31] MEDS: acetaminophen 325 mg Tablet 650 MG PO (07:39)
[2023-08-31] MEDS: docusate sodium 100 mg Capsule PO (07:39)
[2023-08-31 08:00] VITALS: BP 116/69; PULSE 55; RESP 16; TEMP 36.9
--- NOTE | 2023-08-31 12:25 | PC.NURSE ---
patient voided 300ml into hat, bladder scan preformed and identified 513ml remaining in bladder
--- NOTE | 2023-08-31 13:49 | P.DS_ITS ---
Discharge Providers REINSURANCE CLERK Date of Admission: 08/30/23 10:26 Date of Discharge: 08/31/23 Attending Provider at Admission: Peter Jackson MD Attending Provider at Discharge: Peter Jackson MD Primary Care Provider: CINDY Alfaro Reason for Visit 2 Reason for Visit: N81.10, N81.2, N81.6 Hospital Course Hospital Course Mrs. Chandler 68-year-old female with uterine prolapse, cystocele, rectocele. Admitted for planned total vaginal hysterectomy with anterior colporrhaphy augmented with allograft, mid urethral sling, posterior colporrhaphy and sacros pinous fixation. A total vaginal hysterectomy with bilateral salpingo- oophorectomy was performed with anterior colporrhaphy augmented with allograft, mid urethral sling, posterior colporrhaphy, and sacrospinous fixation. Overnight observation was uneventful. She is afebrile hemodynamically stable postoperative day 1. Tolerating diet well. Ambulating without difficulty. PVR elevated and the patient will be discharged with Phillips catheter and instructed to return to the clinic Tuesday for removal of catheter. She was counseled regarding weight lifting limitations and pelvic rest for 6 weeks (no sex, no tampons, no vaginal douches). Return to the emergency room if any fever, increased bleeding or pain. Physical Exam Narrative: GA: Alert and oriented ?3. HEENT: WNL. Heart: Regular rate and rhythm. Lungs: Clear to auscultation bilaterally. Abdomen: Bowel sounds present, nontender, minimal tenderness, incision clean and dry, no redness, pain or edema. HOTEL MAID: Spotting bleeding. Extremities: No edema, no cyanosis, no calves pain. Urinary Catheter Management: Phillips: Cath Placed During This Visit: yes, but has since been removed by the nurse Reason for Continuing Indwelling Catheter: Decision to DC Catheter Urinary Catheter Date of Insertion: 08/30/23 Urinary Catheter Time of Insertion: 07:33 Date Urinary Catheter Removed: 08/31/23 Time Urinary Catheter Discontinued: 05:15 History History History 2 Term 2 0 Miscarriages/Ectopic 0 Living Children 2 Discharge Data Studies Completed and Pending Pending at discharge Category Date Time Status Urine Culture Routine Lab 08/30/23 06:10 Results Pathology: Surgical [PTH] Routine Pth 08/30/23 08:08 Received Laboratory Results WBC 8.14 10^3/uL (3.29-11.43) 08/31/23 05:15 RBC 3.45 10^6/uL (3.85-5.65) L 08/31/23 05:15 Hgb 10.60 g/dL (11.27-16.99) L 08/31/23 05:15 Hct 33.2 % (36-47) L 08/31/23 05:15 MCV 96.2 fl (85-98) 08/31/23 05:15 MCH 30.7 pg (27-33) 08/31/23 05:15 MCHC 31.9 g/dL (30-55) 08/31/23 05:15 RDW 13.8 % (12.1-15.1) 08/31/23 05:15 Plt Count 150 10^3/cmm (157-399) L 08/31/23 05:15 MPV 12.2 fL (7.4-10.4) H 08/31/23 05:15 Neut % (Auto) 45.5 % 08/30/23 06:33 Lymph % (Auto) 40.6 % 08/30/23 06:33 Merrick % (Auto) 9.0 % 08/30/23 06:33 Eos % (Auto) 3.3 % 08/30/23 06:33 Baso % (Auto) 1.4 % 08/30/23 06:33 Neut # (Auto) 1.93 10^3/uL (1.8-7.7) 08/30/23 06:33 Lymph # (Auto) 1.7 10^3/uL (0.8-4.8) 08/30/23 06:33 Merrick # (Auto) 0.4 10^3/uL (0.2-0.9) 08/30/23 06:33 Eos # (Auto) 0.1 10^3/uL (0.0-0.8) 08/30/23 06:33 Baso # (Auto) 0.1 10^3/uL (0.0-0.1) 08/30/23 06:33 Nucleated RBC % (auto) 0 % 08/30/23 06:33 Nucleated RBCs # 0.0 /100WBC 08/30/23 06:33 Sodium 141 mmol/L (136-145) 08/30/23 06:33 Potassium 4.1 mmol/L (3.5-5.1) 08/30/23 06:33 Chloride 105 mmol/L (98-107) 08/30/23 06:33 Carbon Dioxide 26 mmol/L (22-29) 08/30/23 06:33 Anion Gap 14.1 (5-19) 08/30/23 06:33 BUN 17 mg/dL (8-23) 08/30/23 06:33 Creatinine 0.6 mg/dL (0.5-0.9) 08/30/23 06:33 GFR Calculation 100.0 mL/min (90-130) 08/30/23 06:33 Glucose 86 mg/dL (65-115) 08/30/23 06:33 Calculated Osmolality 293 mOsm/kg (285-295) 08/30/23 06:33 Calcium 9.0 mg/dL (8.5-10.5) 08/30/23 06:33 Total Bilirubin 0.3 mg/dL (0.15-1.2) 08/30/23 06:33 AST 13 U/L (0-32) 08/30/23 06:33 ALT 10 U/L (0-33) 08/30/23 06:33 Alkaline Phosphatase 98 U/L (35-105) 08/30/23 06:33 Total Protein 7.1 g/dL (6.6-8.7) 08/30/23 06:33 Albumin 4.3 g/dL (3.5-5.2) 08/30/23 06:33 Globulin 2.8 g/dL (1.3-4.6) 08/30/23 06:33 Urine Color Yellow (Yellow) 08/30/23 06:10 Urine Appearance Slightly cloudy (CLEAR) 08/30/23 06:10 Urine pH 5 (5-7) 08/30/23 06:10 Ur Specific [place] 1.015 (1.005-1.030) 08/30/23 06:10 Urine Protein Neg (Negative) 08/30/23 06:10 Urine Glucose (UA) Norm (Normal) 08/30/23 06:10 Urine Ketones 1+ (Negative) H 08/30/23 06:10 Urine Blood 2+ (Negative) H 08/30/23 06:10 Urine Nitrate Negative (Negative) 08/30/23 06:10 Urine Bilirubin Neg (Negative) 08/30/23 06:10 Urine Urobilinogen Neg mg/dL (Negative) 08/30/23 06:10 Ur Leukocyte Esterase 2+ (Negative) H 08/30/23 06:10 Urine RBC 0-4 /hpf (0-2) H 08/30/23 06:10 Urine WBC 15-25 /hpf (0-5) H 08/30/23 06:10 Ur Squamous Epith Cells 0-4 /hpf (0-5) H 08/30/23 06:10 Ur Transition Epith Cell 0-4 /hpf 08/30/23 06:10 Amorphous Sediment Not Reportable 08/30/23 06:10 Urine Bacteria Trace /hpf (NONE) 08/30/23 06:10 Urine Mucus 1+ /hpf 08/30/23 06:10 Blood Type O Negative 08/30/23 06:23 Rho(D) Type Rh negative 08/30/23 06:23 Antibody Screen Negative 08/30/23 06:23 Vitals Last Vital Signs Temp 98.4 F 08/31/23 08:00 Pulse 55 L 08/31/23 08:00 Resp 16 08/31/23 08:00 BP 116/69 08/31/23 08:00 Pulse Ox 95 08/30/23 22:00 O2 Del Method Room Air 08/30/23 22:00 O2 Flow Rate 2 08/30/23 12:25 Results Labs OB ([facility]): Blood Type O Negative 08/30/23 Antibody Screen Negative 08/30/23 Hct 33.2 % (36-47) L 08/31/23 Hgb 10.60 g/dL (11.27-16.99) L 08/31/23 Rho(D) Type Rh negative 08/30/23 Plt Count 150 10^3/cmm (157-399) L 08/31/23 TSH 5.88 uIU/mL (0.27-4.20) H 06/01/23 Micro Urine Specimen 08/30/23 Discharge Plan Discharge Patient Disposition: Home Condition: Stable Prescriptions: New hydrocodone-acetaminophen 5-325 mg tablet 1 tab PO Q4H PRN (Reason: pain) Qty: 20 0RF docusate sodium [Colace] 100 mg capsule 100 mg PO BID Qty: 60 0RF acetaminophen 325 mg capsule 325 mg PO Q4H PRN (Reason: fever or pain) Qty: 60 0RF ibuprofen 800 mg tablet 800 mg PO TID PRN (Reason: pain) Qty: 60 0RF nitrofurantoin macrocrystal 100 mg capsule 100 mg PO BID 7 Days Qty: 14 0RF Rx Instructions: must administer with a meal/food Continued nitroglycerin 0.4 mg tablet, sublingual 0.4 mg sublingual Q5M PRN (Reason: chest pain) 30 Days Qty: 30 3RF Rx Instructions: until response; do not exceed 3 doses per episode prednisolone acetate 1 % drops,suspension 1 drp ophthalmic (eye) DAILY 30 Days Qty: 5 2RF levothyroxine 50 mcg capsule 50 mcg PO DAILY Qty: 90 3RF acetaminophen-codeine 300-30 mg tablet 1 tab PO Q6H 5 Days Qty: 20 0RF aspirin 325 mg Tablet 325 mg PO DAILY Discharge Orders: Discharge Order (Routine); Ordered 08/31/23 Ordered By: Peter Jackson Referrals: Peter Jackson MD [Physician] - 09/15/23 2:15 pm (6 WEEK POSTOP: 10/10/23 @ 09:45 AM) Discharge Diet: Soft Mechanical Discharge Activity: Limit activity as instructed Patient Instructions: Phillips Catheter Care, Opioid Safety (DC), Bladder Sling for Women (DC), Vaginal Hysterectomy (DC), Anterior Vaginal Repair (DC), Posterior Vaginal Repair (DC), OB Discharge Report, OB Food/Drug Interaction Guide, Opioid Safety Activity Restrictions/Additional Instructions: 1. Please call [facility] on next working day to make your post-operative appointment in 2 weeks. 2. Please stay home until you come back to the clinic on first post-hospa tilization check up. 3. Please follow instructions on your medications CAREFULLY. 4. If you have abdominal incision, do not cover it unless dressing is necessary because of drainage. OK to shower, but avoid bath. Leave steri-strips until they fall off. If they are still on one week after surgery, you may remove them. 5. If you had vaginal surgery or vaginal repair, Dr. Jackson may instruct you to take SITZ bath. 6. Yellow, blood tinged odorous vaginal discharge is usually normal after hysterectomy or vaginal surgeries. 7. No SEXUAL INTERCOURSE, tampons, or douches until you are completely released from the post-operative care. 8. Avoid constipation by eating right and maybe using some Metamucil or Milk of Magnesia. 9. All prescription refills are given during the working hours. Please do no wait till it runs out. Call the clinic at [phone] before your medication runs out. The clinic will get in touch with your doctor to prescribe medications if necessary. 10. Please remain within 40 mile radius from our hospital because emergencies do happen now and then during the post-operative period. 11. If you have stairs at home, take one step at a time slowly and minimize the number of trips. It helps to stay in one floor for the next few days. No lifting except what you can lift by one hand until you are released from the post-operative care. 12. Driving is discouraged until you are well healed. It may be 3-4 weeks before you feel strong enough to drive. You should be able to turn and look through the rear window without pain and you should be able to push the brake pedal very hard without pain before you drive. No fast rules, but SAFETY should be your primary concern. DO NOT drive if you are on sedating medications such as narcotics. 13. Call the clinic (during working hours) to make urgent appointment or go to the Emergency room, if any of the following occurs: i. Vaginal bleeding becomes heavy, more than a period. ii. Incision becomes red and sore, or drains pus. iii. Your TEMPERATURE is over 100.4F or you have chill. iv. IV site becomes red and swollen (a little ``knot?? is usually OK) v. Persistent nausea and vomiting vi. Persistent constipation or diarrhea vii. Rash or allergic reaction to medications. Discharge Attestations REINSURANCE CLERK Time Spent in Discharge Care*: greater than 30 min Coding Level of Care Code Acute Code for Chg Fwd
[2023-08-31 14:43] VITALS: BP 116/73; PULSE 61; RESP 16; TEMP 36.7; O2SAT 97
--- NOTE | 2023-08-31 14:48 | PC.NURSE ---
POST RESIDUAL VOIDS DONE BY LIBAN HUNTER RN PT HAD NOT VOIDED SINCE ARCHER REMOVED SO LIBAN SCANNED HER BLADDER AT 0950 AND SHE HAD 350MLS. THEN PATIENT GOT UP AT 1030 AND VOIDED 100MLS AND SCANNED WAS 450MLS. AT 1100 SHE VOIDED 200MLS AND THEN SCAN WAS 380. CALL PLACED TO DR. WILDER AND ORDERS TO TRY ONCE MORE AND IF STILL POST RESIDUAL HIGH THEN SHE WOULD HAVE TO GO HOME WITH ARCHER.
== END 2023-08-31 14:44 | disposition home or self-care (01) ==
LOC: OBGYN 10:26
PROVIDERS: Admitting Provider Obstetrics & Gynecology; PCP Registered Nurse; Visit Provider Obstetrics & Gynecology
PROC: (CPT 57240; principal; 2023-08-30 07:00)
PROC: 0JQC0ZZ Repair Pelvic Region Subcutaneous Tissue and Fascia, Open Approach (ICD-10-PCS; CPT 57240; 2023-08-30 07:00)
PROC: (CPT 57250; 2023-08-30 07:00)
PROC: (CPT 57288; 2023-08-30 07:00)
PROC: (CPT 57282; 2023-08-30 07:00)
PROC: (CPT 58700; 2023-08-30 07:00)
DX: N81.4 Uterovaginal prolapse, unspecified (principal); Z79.82 Long term (current) use of aspirin; E03.9 Hypothyroidism, unspecified
CPT/HCPCS: 57240; 57282; 57288; 58262; 36415; 80053; 81001; 85025; 85027; 86850; 86900; 87086; 88307; 96374; 96376; C1713; C1762; G0378; J0694; J1100; J1170; J1200; J1650; J1885; J2250; J2371; J2405; J2704; J2710; J3010; J3490; J7030; J7121

== ENCOUNTER → 2023-10-19 09:06 | Outpatient (BNVA) | payer MEDICARE, SELFPAY | PROVIDERS: PCP Registered Nurse; Visit Provider Registered Nurse | DX: E03.9 Hypothyroidism, unspecified (principal) | CPT/HCPCS: 80053; 84443; 85025 ==

== ENCOUNTER → 2023-12-30 10:26 | Outpatient (BNVA) | payer MEDICARE, SELFPAY | PROVIDERS: PCP Registered Nurse; Visit Provider Nurse Practitioner Family | DX: D48.5 Neoplasm of uncertain behavior of skin (principal); L57.0 Actinic keratosis; L82.0 Inflamed seborrheic keratosis; D22.5 Melanocytic nevi of trunk; L57.8 Other skin changes due to chronic exposure to nonionizing radiation | CPT/HCPCS: 11102; 17000; 17110; 99203 ==

== ENCOUNTER → 2024-05-03 11:45 | Outpatient (BNVA) | payer MEDICARE, SELFPAY | PROVIDERS: PCP Registered Nurse; Visit Provider Registered Nurse | DX: E03.9 Hypothyroidism, unspecified (principal) | CPT/HCPCS: 84443 ==